=== PATIENT | male | born 1950 | race Caucasian/White ===

== ENCOUNTER 2016-10-18 07:43 | Inpatient (IN) | payer MEDICARE ==
[2016-10-18] VITALS (11 sets, daily range): BP systolic 98–123; BP diastolic 65–82
[~2016-10-18] VITALS: Ht 177.8 cm; Wt 69.0 kg
--- NOTE | ~2016-10-18 | WRIGHTHP ---
[place], [place] PATIENT HISTORY AND PHYSICAL EXAM NAME: LOLA VAZQUEZ [facility] #: [id number] UNIT #: [id number] ROOM: 506 DOCTOR: VINICIUS SIMENTAL MD BIRTHDATE: [birth year] DOS: 10/18/2016 HISTORY OF PRESENT ILLNESS: The patient is 66 years old. The patient states that he was in his usual state of health yesterday; he had few bottles of beer because it was Labor Day. He normally does not drink. He has history of peptic ulcer disease, but he does take 1 Naprosyn every day for his chronic back pain. He denies having any complaints of chest pains or palpitations, but during the night, he woke up and he had multiple emesis, abdominal pain and also had black-colored stools with some blood in his emesis. So, he decided to come into the emergency room where he was evaluated and was admitted. PAST MEDICAL HISTORY: Significant for: 1. History of peptic ulcer disease for which he is hospitalized in the past. 2. Hypertension. MEDICATIONS: Carvedilol 25 b.i.d., lisinopril 20 daily, hydrochlorothiazide 12.5 daily. SOCIAL HISTORY: Smoker of about half a pack. Denies using any alcohol on a regular basis. PHYSICAL EXAMINATION: GENERAL: He is awake and alert and oriented in no major distress. VITAL SIGNS: Graphic trend shows a pressure of 110/71, pulse of 57, respirations 16, temperature 97.8. LUNGS: Diminished breath sounds, clear. HEART: Regular. ABDOMEN: Soft, scaphoid, nontender. EXTREMITIES: Without any edema. LABORATORY DATA: The white cell count is 16.8, hemoglobin 13.1, hematocrit 37.3, platelets were 264. Comprehensive BUN is 62, creatinine 1.29. Chest x-ray was unremarkable. ASSESSMENT AND PLAN: 1. Elevated BUN, most likely from GI bleed. The patient is also on hydrochlorothiazide causing concern for kidney injury, so we discontinued hydrochlorothiazide and avoid naproxen and place him on IV fluids. 2. Most likely upper gastrointestinal bleed with coffee-ground emesis as well as black stools, endoscopy scheduled 3. Family history of colon cancer. Father at the age of 74. The patient should undergo a colonoscopy, but he is not being prepped for that. I encouraged the patient to have it done as an outpatient. 4. Bradycardia noted on exam. This could be from the high doses of carvedilol that he is on. I will hold off on the medicines and possibly cut back on the carvedilol dosage. [place], [place] PATIENT HISTORY AND PHYSICAL EXAM NAME: LOLA VAZQUEZ UNIT #: [id number] ROOM: 506 DOCTOR: VINICIUS SIMENTAL MD BIRTHDATE: [birth year] VINICIUS SIMENTAL MD CM:HISPHYS:PATIENT HISTORY AND PHYSICAL EXAMINATION 1428 [id number] VINICIUS SIMENTAL MD 10/18/16 1558 interface
--- NOTE | ~2016-10-18 | DS ---
[place], [place] DISCHARGE SUMMARY [id number] UN[facility] #: [id number] ROOM: 506 DOCTOR: VINICIUS SIMENTAL MD BIRTHDATE: [birth year] DOS: 10/20/2016 DIAGNOSES: 1. Upper gastrointestinal bleed. 2. Esophageal varices with acute gastritis alcoholic, status post epinephrine injection, Sandostatin infusion. 3. Benign hypertension. 4. Bradycardia. 5. Elevated BUN from GI bleed, avoid hydrochlorothiazide. HOSPITAL COURSE: This patient is not known to me, patient of Dr. Hilton, comes in with complaints of black colored stools following few bottles of beer the Day weekend. He also takes Naprosyn for his back pain. After admission, the patient was placed on IV fluids, serial H and H's did show slight drop, but did not require any transfusion. He did not have any active bleed. Dr. Almeida did see him, took him for endoscopy, showed the above-mentioned findings. After epinephrine injection, the patient has not had any complaints. The patient is stable and improved this morning. Hypokalemia supplementation is being ordered. The patient is otherwise stable. Avoid hydrochlorothiazide, nonsteroidals and alcohol in future, decrease dose of beta blockers since the patient has bradycardia. DISCHARGE MEDICATIONS: Protonix 40 daily and KCl 10 mEq daily for a week. VINICIUS SIMENTAL MD CM:DISCHARG 1012 VINICIUS SIMENTAL MD 10/20/16 1012 interface
--- NOTE | ~2016-10-18 | PR ---
[place], [place] PROGRESS NOTE [facility] [id number] UNIT #: [id number] ROOM: 506 DOCTOR: VINICIUS SIMENTAL MD BIRTHDATE: [birth year] DOS: SUBJECTIVE: The patient is not having any new complaint. OBJECTIVE: VITAL SIGNS: Graphic trend shows pressure 152/89, pulse of 72, respirations 18, temperature 97.6. LUNGS: Diminished breath sounds, clear. HEART: Regular. ABDOMEN: Soft. EXTREMITIES: Without any edema. ASSESSMENT AND PLAN: 1. Acute upper gastrointestinal bleed with endoscopy showing esophageal varices status post epinephrine injection and Sandostatin infusion. The patient is stable. We will discharge him to home today. Follow up with his PCP. 2. Benign hypertension, the patient's blood pressure has been controlled. He has been off his medications. He is advised to cut back on his dose of his Coreg and lisinopril because he is bradycardic he should not be taking this high amount of Coreg that he is on at home. Also, the hydrochlorothiazide has caused elevated BUN, so should avoid that too. Also, he is advised to avoid alcohol because of his high risk for esophageal bleed. VINICIUS SIMENTAL MD CM:PNTRANS 9 4 VINICIUS SIMENTAL MD 10/20/16924 interface
--- NOTE | ~2016-10-18 | O ---
[place], [place] OPERATIVE NOTE [facility]: [id number] UNIT #: [id number] ROOM: 506 DOCTOR: PRISCILLA BUNCH,CLARENCE BIRTHDATE: [birth year] DOS: GASTROENDOSCOPIC REPORT HISTORY OF PRESENT ILLNESS: This gentleman has presented to Emergency Room with hematemesis and black tarry stool. The patient with history of ETOH and history of take. PROCEDURE: Today's procedure part of investigation is panendoscopy, epinephrine injection and hemostasis therapy. PREMEDICATION: Versed and Diprivan. SCOPE: Olympus forward-viewing gastroscope Q10 video. REPORT: After putting the patient in the left lateral position and after application of lubricant to the scope, the scope was introduced. Thereafter, under direct visualization, I advanced through the length of the esophagus without difficulty. Trace esophageal varicosity was noticed. Hiatal hernia was noticed. At the level of the hiatal hernia, proximal gastric pouch, there is a bleeding visible vessel, which was photographed and injected with 2.5 mL of epinephrine 1:10,000 in both flanks. Gastric pouch was entered. Gastritis seen. Duodenal bulb, second and third part within normal limits. The patient extubated, tolerated procedure well. IMPRESSION: Esophageal varicosity, hiatal hernia, proximal bleeding visible vessel, status post epinephrine injection, hemostasis therapy. PLAN AND DISCUSSION: Sandostatin management with 50 mcg loading and 50 mcg per hour for next 12 hours and then 25 mcg per hour for 72 hours. Sucralfate slurry 2 grams q.6 hours, Protonix 40 mg IV b.i.d. ice chips today and from tomorrow, ice cream, milk shake and Ensure and follow up on H and H. CLARENCE WELLS MD CM:OPRECORD:OPERATIVE NOTE 1546 08 CLARENCE WELLS MD 10/18/161708 interface
--- NOTE | ~2016-10-18 | CON ---
[place], [place] REPORT OF CONSULTATION NAME[facility] [id number] UNIT #: [id number] ROOM: 506 DOCTOR: CLARENCE WELLS MD BIRTHDATE: [birth year] DOS: HISTORY OF PRESENT ILLNESS: This is a 66-year-old patient who presented with chief complaint of hematemesis and blood in stool. The patient's relevant history is that the patient has been on naproxen as well as old history of heavy alcohol consumption as well as recent alcohol consumption of 10 bottles of beer yesterday. At the time of admission, he had a panel of blood work done. Lactic acid was normal. CBC: White blood cell 16, H and H of 13 and 37, platelet count was 264. Comprehensive metabolic panel: BUN and creatinine of 62 and 1.29 was noticed. Electrolytes balanced, liver function tests surprisingly normal. Lipase 325, normal INR 1.1 and PT of 10.7 seconds and PTT of 23.6 seconds. Chest x-ray, no acute cardiopulmonary pathology. Drug screening was positive for THC. Urinalysis otherwise 1+ blood. PAST MEDICAL HISTORY: Associated with hypertension. PAST SURGICAL HISTORY: Right knee, right shoulder. ALLERGIES: PENICILLIN. SOCIAL HISTORY: Smoker and old history of alcohol and recent history of alcohol. MEDICATIONS: List reviewed. FAMILY HISTORY: Noncontributory. REVIEW OF SYSTEMS: HEENT: Denies double vision, blurred vision. RESPIRATORY: Admits some shortness of breath. CARDIOVASCULAR: Denies chest pain. DIGESTIVE SYSTEM: Hematemesis and blood in the stool as well. NEUROMUSCULOSKELETAL: Denies muscle wasting or tremens. PHYSICAL EXAMINATION: VITAL SIGNS: Stable. HEENT: Head normocephalic, nontraumatic. Mouth, buccal mucosa benign. NECK: Supple, no thyromegaly, no cervical lymphadenopathy. CHEST: Symmetric anatomy, decreased air entry in general. No wheeze, no rhonchi. HEART: Normal sinus rhythm, no gallop, no murmur. ABDOMEN: Soft. No hepato-organomegaly. Bowel sounds present. EXTREMITIES: Dry. No cyanosis, no pedal edema. NEUROLOGIC: Alert and oriented. IMPRESSION: Hematemesis with a history of ETOH heavily in past and likely presently, ruling out esophageal varicosities. His LFTs are normal. We will proceed with endoscopic assessment and based on the findings, further adjustment in the orders. [place], [place] REPORT OF CONSULTATION NAME: LOLA VAZQUEZ UNIT #: [id number] ROOM: 506 DOCTOR: CLARENCE WELLS MD BIRTHDATE: [birth year] ADJUNCTIVE DIAGNOSES: Systemic hypertension and chronic lower back pain, on naproxen. Thank you very much indeed. CLARENCE WELLS MD CM:CONSTR:REPORT OF CONSULTATION 1514 10/19/16 0606 interface
--- NOTE | ~2016-10-18 | PR ---
[place], [place] PROGRESS NOTE [facility]: [id number] UNIT #: [id number] ROOM: 506 DOCTOR: VINICIUS SIMENTAL MD BIRTHDATE: [birth year] DOS: SUBJECTIVE: The patient is about the same, does not have any new complaints. OBJECTIVE: VITAL SIGNS: Graphic trend shows a pressure 105/67, pulse is 71, respirations 20, temperature 98.2. LUNGS: Diminished breath sounds, clear. HEART: Regular. ABDOMEN: Soft. EXTREMITIES: Without any edema. ASSESSMENT AND PLAN: 1. Upper gastrointestinal bleed. Endoscopy was done yesterday, which showed esophageal varicosity, proximal bleeding blood vessel. This was injected with epinephrine and was started on Sandostatin. His blood count has gone down slightly to 10.0. We will continue to monitor that and start him on a diet as advised by Dr. Almeida to just ice cream and cold foods and if he does okay, he should be able to go home tomorrow. 2. Benign hypertension, pressure is normal, I am holding off on his antihypertensives. VINICIUS SIMENTAL MD CM:PNTRANS [id number] VINICIUS SIMENTAL MD 10/20/16 0336 interface
--- NOTE | ~2016-10-18 | WRIGHTHP ---
[place], [place] PATIENT HISTORY AND PHYSICAL EXAM [id number] #: [id number] ROOM: 506 DOCTOR: CLARENCE WELLS MD BIRTHDATE: [birth year] DOS: 10/18/2016 HISTORY OF PRESENT ILLNESS: The patient is 66-year-old who has presented with nausea, epigastric distress, dyspepsia, burning sensation in the epigastrium, history of peptic ulcer disease. The patient had presented to emergency room. PAST MEDICAL HISTORY: Duodenal ulcer, gastritis, history of neuropathy, diabetes mellitus and vertigo. PAST SURGICAL HISTORY: Nil. SOCIAL HISTORY: Nonsmoker, nonalcohol consumer. FAMILY HISTORY: Noncontributory except diabetes. ALLERGIES: VICODIN, ERYTHROMYCIN, HYDROCODONE. MEDICATIONS AT HOME: Insulin and amitriptyline. REVIEW OF SYSTEMS: In general, HEENT: Denies double vision, blurred vision. RESPIRATORY: Denies shortness of breath. CARDIOVASCULAR: Denies chest pain. DIGESTIVE SYSTEM: Epigastric distress, dyspepsia, nausea. NEUROMUSCULOSKELETAL: No muscle wasting, no tremens. Review of other systems normal. PHYSICAL EXAMINATION: VITAL SIGNS: Stable. HEENT: Head, normocephalic, nontraumatic. Mouth and buccal mucosa benign. NECK: Supple. No thyromegaly. No cervical lymphadenopathy. CHEST: Symmetric anatomy, equal expansion. No wheeze, no rhonchi. HEART: Normal sinus rhythm. No gallop, no murmur. ABDOMEN: Soft. No hepato-organomegaly. Bowel sounds present. No pulsatile mass. EXTREMITIES: No cyanosis, no pedal edema. NEUROLOGICAL: Alert, oriented to time, place and person. IMPRESSION: Epigastric distress, dyspepsia, ruling out peptic ulcer disease, history of duodenal ulcer, history of diabetes mellitus, history of gastritis and neuropathy. PLAN AND DISCUSSION: Endoscopic assessment of upper GI tract and clinical reevaluation. Thank you very much indeed. [place], [place] PATIENT HISTORY AND PHYSICAL EXAM NAME: LOLA VAZQUEZ UNIT #: [id number] ROOM: 506 DOCTOR: CLARENCE WELLS MD BIRTHDATE: [birth year] CLARENCE WELLS MD CM:HISPHYS:PATIENT HISTORY AND PHYSICAL EXAMINATION 1601 1727 CLARENCE WELLS MD 10/19/16 0647 interface
[2016-10-18 08:30] LABS: ALBUMIN 4.1 gm/dl (3.1-4.5); ALKALINE PHOSPHATASE 58 U/L (45-117); BUN 62 mg/dl (7-24); CHLORIDE 93 mmol/L (98-107); CREATININE 1.29 mg/dL (0.70-1.30); LIPASE 327 U/L (73-393); MAGNESIUM 2.6 mg/dL (1.5-2.1); POTASSIUM 3.5 mmol/L (3.5-5.1); SGOT/AST 15 IU/L (3-35); SGPT/ALT 19 U/L (12-78); SODIUM 132 mmol/L (136-145); TOTAL PROTEIN 7.8 gm/dL (6.4-8.2)
[2016-10-18 08:35] LABS: BASO % 0.2 % (0.0-1.0); EOS # 0.1 10*3/uL (0.0-0.4); EOS % 0.3 % (1.0-4.0); HEMATOCRIT 37.3 % (42.0-52.0); HEMOGLOBIN 13.1 g/dl (14.0-18.0); LYMPH # 2.3 10*3/uL (1.3-4.4); LYMPH % 13.5 % (27.0-41.0); MEAN CELL VOLUME 93.5 fl (80.0-94.0); MEAN CORPUSCULAR HGB 32.8 pg (27.0-31.0); MEAN CORPUSCULAR HGB CONC 35.1 g/dl (33.0-37.0); MEAN PLATELET VOLUME 9.7 fl (9.6-12.3); MONO # 1.1 10*3/uL (0.1-1.0); MONO % 6.8 % (3.0-9.0); NEUT # 13.2 10*3/uL (2.3-7.9); NEUT % 78.5 % (47.0-73.0); PLATELET COUNT AUTOMATED 264 10*3/uL (130-400); RED BLOOD COUNT 3.99 10*6/uL (4.50-5.90); WHITE BLOOD COUNT 16.8 10*3/uL (4.8-10.8)
[2016-10-18 08:38] LABS: ETHYL ALCOHOL < 3.0 mg/dl (<3)
[2016-10-18 08:47] LABS: ACT PARTIAL THROMBO TIME 23.6 SECONDS (20.8-31.5)
[2016-10-18] MEDS ORDERED: COREG25 MG PO (10:08)
[2016-10-18] MEDS ORDERED: ZESTORETIC 20-1 EACH PO (10:09)
[2016-10-18] MEDS ORDERED: VITAMIN D31000 UNIT PO (10:09)
[2016-10-18] MEDS ORDERED: ALEVE220 MG PO (10:10)
[2016-10-18] MEDS ORDERED: TYLENOL PM EX-1 EACH PO (10:10)
[2016-10-18 10:28] LABS: BILIRUBIN NEGATIVE (NEGATIVE); BLOOD 1+ (NEGATIVE); CLARITY CLEAR (CLEAR); COLOR YELLOW (YELLOW); GLUCOSE NEGATIVE (NEGATIVE); KETONE NEGATIVE (NEGATIVE); LEUKO ESTERASE NEGATIVE (NEGATIVE); NITRITE NEGATIVE (NEGATIVE); SPECIFIC GRAVITY <= 1.005 (1.005-1.030); UROBILINOGEN 0.2 E.U./dl (0.2-1.0)
[2016-10-18 10:36] LABS: URINE AMPHETAMINES < 1000 (1000ng/ml); URINE BARBITURATES < 200 (200ng/ml); URINE BENZODIAZEPINES < 200 (200ng/ml); URINE CANNABINOIDS (THC) > 50 (50ng/ml); URINE COCAINE < 300 (300ng/ml); URINE METHADONE < 300 (300ng/ml); URINE OPIATES < 300 (300ng/ml)
[2016-10-18 10:43] LABS: URINE PHENCYCLIDINE < 25 (25ng/ml)
[2016-10-19] VITALS: BP 105/67
[2016-10-19 07:33] LABS: BASO % 0.6 % (0.0-1.0); EOS # 0.2 10*3/uL (0.0-0.4); EOS % 2.5 % (1.0-4.0); LYMPH # 2.2 10*3/uL (1.3-4.4); LYMPH % 30.5 % (27.0-41.0); MEAN CORPUSCULAR HGB 33.7 pg (27.0-31.0); MEAN CORPUSCULAR HGB CONC 35.1 g/dl (33.0-37.0); MEAN PLATELET VOLUME 9.4 fl (9.6-12.3); MONO # 0.7 10*3/uL (0.1-1.0); MONO % 9.2 % (3.0-9.0); NEUT # 4.1 10*3/uL (2.3-7.9); NEUT % 56.9 % (47.0-73.0); RED BLOOD COUNT 2.97 10*6/uL (4.50-5.90); RED CELL DISTRI WIDTH 12.3 % (0-14.5); WHITE BLOOD COUNT 7.3 10*3/uL (4.8-10.8)
[2016-10-19 07:43] LABS: HEMATOCRIT 28.5 % (42.0-52.0); PLATELET COUNT AUTOMATED 167 10*3/uL (130-400)
[2016-10-19 08:00] VITALS: BP 126/80
[2016-10-19 08:06] LABS: CHLORIDE 106 mmol/L (98-107); CREATININE 0.98 mg/dL (0.70-1.30); POTASSIUM 3.4 mmol/L (3.5-5.1); SODIUM 137 mmol/L (136-145)
[2016-10-19 08:14] LABS: BUN 26 mg/dl (7-24)
[2016-10-19 12:01] VITALS: BP 112/63
[2016-10-19 16:00] VITALS: BP 149/85
[2016-10-19 20:00] VITALS: BP 130/86
[2016-10-20] VITALS: BP 152/89
[2016-10-20 08:00] VITALS: BP 159/89
[2016-10-20] MEDS ORDERED: PROTONIX40 MG PO (08:01)
[2016-10-20] MEDS ORDERED: K-TAB10 MEQ PO (08:03)
[2016-10-20 08:26] LABS: BASO # 0.1 10*3/uL (0.0-0.1); BASO % 0.4 % (0.0-1.0); EOS # 0.3 10*3/uL (0.0-0.4); EOS % 2.7 % (1.0-4.0); HEMATOCRIT 30.5 % (42.0-52.0); HEMOGLOBIN 10.6 g/dl (14.0-18.0); LYMPH # 1.9 10*3/uL (1.3-4.4); LYMPH % 15.9 % (27.0-41.0); MEAN CELL VOLUME 95.9 fl (80.0-94.0); MEAN CORPUSCULAR HGB 33.3 pg (27.0-31.0); MEAN CORPUSCULAR HGB CONC 34.8 g/dl (33.0-37.0); MEAN PLATELET VOLUME 9.1 fl (9.6-12.3); MONO % 8.2 % (3.0-9.0); NEUT # 8.6 10*3/uL (2.3-7.9); NEUT % 72.4 % (47.0-73.0); RED BLOOD COUNT 3.18 10*6/uL (4.50-5.90); RED CELL DISTRI WIDTH 12.2 % (0-14.5); WHITE BLOOD COUNT 11.9 10*3/uL (4.8-10.8)
[2016-10-20 08:27] LABS: PLATELET COUNT AUTOMATED 218 10*3/uL (130-400)
[2016-10-20 08:41] LABS: ALBUMIN 3.9 gm/dl (3.1-4.5); ALKALINE PHOSPHATASE 51 U/L (45-117); CHLORIDE 104 mmol/L (98-107); CREATININE 0.94 mg/dL (0.70-1.30); POTASSIUM 3.7 mmol/L (3.5-5.1); SGOT/AST 20 IU/L (3-35); SGPT/ALT 22 U/L (12-78); SODIUM 138 mmol/L (136-145); TOTAL PROTEIN 7.5 gm/dL (6.4-8.2)
[2016-10-20 08:47] LABS: BUN 10 mg/dl (7-24)
== END 2016-10-20 08:26 | disposition home or self-care (01) | DRG 377 ==
LOC: ED 07:43 → 5E 08:44
PROVIDERS: Emergency Medicine; Internal Medicine; ADMIT Internal Medicine
PROC: 3E0G8GC Introduction of Other Therapeutic Substance into Upper GI, Via Natural or Artificial Opening Endoscopic (ICD-10-PCS; principal; 2016-10-18)
DX: K92.2 Gastrointestinal hemorrhage, unspecified (principal); N17.0 Acute kidney failure with tubular necrosis; E87.1 Hypo-osmolality and hyponatremia; E11.40 Type 2 diabetes mellitus with diabetic neuropathy, unspecified; F17.210 Nicotine dependence, cigarettes, uncomplicated; G89.29 Other chronic pain; M54.5 Low back pain; I85.00 Esophageal varices without bleeding; E87.6 Hypokalemia; R00.1 Bradycardia, unspecified; K44.9 Diaphragmatic hernia without obstruction or gangrene; I10 Essential (primary) hypertension; Z79.899 Other long term (current) drug therapy; Z80.0 Family history of malignant neoplasm of digestive organs; Z79.4 Long term (current) use of insulin; Z88.1 Allergy status to other antibiotic agents; Z72.89 Other problems related to lifestyle; Z88.0 Allergy status to penicillin; Z87.11 Personal history of peptic ulcer disease; Z88.8 Allergy status to other drugs, medicaments and biological substances; Z71.41 Alcohol abuse counseling and surveillance of alcoholic; K29.20 Alcoholic gastritis without bleeding

== ENCOUNTER → 2017-01-24 | Outpatient (CLI) | payer MEDICARE ==
[~2017-01-24] MED LIST: ALEVE220 MG PO; COREG25 MG PO; K-TAB10 MEQ PO; PROTONIX40 MG PO; TYLENOL PM EX-1 EACH PO; VITAMIN D31000 UNIT PO; ZESTORETIC 20-1 EACH PO
== END | disposition home or self-care (01) ==
LOC: RAD 09:06
DX: M19.042 Primary osteoarthritis, left hand (principal); M65.4 Radial styloid tenosynovitis [de Quervain]

== ENCOUNTER → 2018-01-23 | Outpatient (CLI) | payer MEDICARE ==
[2018-01-23 13:09] LABS: BILIRUBIN NEGATIVE (NEGATIVE); BLOOD TRACE-LYSED (NEGATIVE); CLARITY SL CLOUDY (CLEAR); COLOR YELLOW (YELLOW); GLUCOSE NEGATIVE (NEGATIVE); KETONE NEGATIVE (NEGATIVE); LEUKO ESTERASE NEGATIVE (NEGATIVE); NITRITE NEGATIVE (NEGATIVE); PH 6.5 (5.0-9.0); UROBILINOGEN 0.2 E.U./dl (0.2-1.0)
[2018-01-23 13:31] LABS: BACTERIA 3+; EPITHELIAL CELLS 0-2
== END | disposition home or self-care (01) ==
LOC: LAB 12:40
PROVIDERS: Specialist
DX: R31.9 Hematuria, unspecified (principal)

== ENCOUNTER → 2018-04-26 | Outpatient (CLI) | payer MEDICARE ==
[2018-04-26 10:27] LABS: BUN 25 mg/dl (7-24); CHLORIDE 105 mmol/L (98-107); CREATININE 1.21 mg/dL (0.70-1.30); POTASSIUM 3.9 mmol/L (3.5-5.1); SODIUM 140 mmol/L (136-145)
== END | disposition home or self-care (01) ==
LOC: LAB 09:51 → CT 10:00
PROVIDERS: Family Medicine
DX: R59.0 Localized enlarged lymph nodes (principal); R51 Headache; R53.83 Other fatigue; R42 Dizziness and giddiness

== ENCOUNTER → 2018-05-22 | Outpatient (CLI) | payer MEDICARE | END | disposition home or self-care (01) | LOC: CT 08:54 | DX: C77.8 Secondary and unspecified malignant neoplasm of lymph nodes of multiple regions (principal); C79.51 Secondary malignant neoplasm of bone ==

== ENCOUNTER → 2018-09-26 | Outpatient (CLI) | payer MEDICARE, OTHER | END | disposition home or self-care (01) | LOC: CT 14:48 | DX: C34.90 Malignant neoplasm of unspecified part of unspecified bronchus or lung (principal); C77.8 Secondary and unspecified malignant neoplasm of lymph nodes of multiple regions; C79.51 Secondary malignant neoplasm of bone; N28.1 Cyst of kidney, acquired; J43.9 Emphysema, unspecified ==

== ENCOUNTER → 2019-01-30 | Outpatient (CLI) | payer MEDICARE, OTHER | END | disposition home or self-care (01) | LOC: CT 09:40 | DX: C79.51 Secondary malignant neoplasm of bone (principal); C77.8 Secondary and unspecified malignant neoplasm of lymph nodes of multiple regions; C34.11 Malignant neoplasm of upper lobe, right bronchus or lung; N28.1 Cyst of kidney, acquired ==

== ENCOUNTER → 2019-03-24 | Outpatient (CLI) | payer MEDICARE, OTHER | END | disposition home or self-care (01) | LOC: RAD 16:18 | DX: R68.84 Jaw pain (principal) ==

== ENCOUNTER 2019-05-22 11:08 | Emergency (ER) | payer MEDICARE, OTHER ==
[~2019-05-22] VITALS: Ht 177.8 cm; Wt 90.7 kg
[2019-05-22 11:57] LABS: HEMATOCRIT 37.6 % (42.0-52.0); HEMOGLOBIN 11.7 g/dl (14.0-18.0); MEAN CELL VOLUME 104.7 fl (80.0-94.0); MEAN CORPUSCULAR HGB 32.6 pg (27.0-31.0); MEAN CORPUSCULAR HGB CONC 31.1 g/dl (33.0-37.0); MEAN PLATELET VOLUME 9.3 fl (9.6-12.3); NUCLEATED RED BLOOD CELL 0.1 % (0.0-0.0); PLATELET COUNT AUTOMATED 158 10*3/uL (130-400); RED BLOOD COUNT 3.59 10*6/uL (4.50-5.90); RED CELL DISTRI WIDTH 15.4 % (0-14.5)
[2019-05-22 12:07] LABS: ACT PARTIAL THROMBO TIME 24.8 SECONDS (20.0-32.1)
[2019-05-22 12:12] LABS: ALBUMIN 3.4 gm/dl (3.1-4.5); ALKALINE PHOSPHATASE 57 U/L (45-117); BUN 23 mg/dl (7-24); CHLORIDE 108 mmol/L (98-107); CREATININE 1.11 mg/dL (0.70-1.30); SGOT/AST 33 IU/L (3-35); SGPT/ALT 49 U/L (12-78); SODIUM 138 mmol/L (136-145); TOTAL PROTEIN 7.3 gm/dL (6.4-8.2)
[2019-05-22 12:17] LABS: TOTAL CELLS COUNTED 100 #CELLS
[2019-05-22 12:18] LABS: PLATELET SUFFICIENCY NORMAL (NORMAL)
== END 2019-05-22 14:12 | disposition home or self-care (01) ==
LOC: ED 11:08
PROVIDERS: Nurse Practitioner Family
DX: S02.2XXA Fracture of nasal bones, initial encounter for closed fracture (principal); S42.392A Other fracture of shaft of left humerus, initial encounter for closed fracture; S09.90XA Unspecified injury of head, initial encounter; Z88.0 Allergy status to penicillin; Z88.8 Allergy status to other drugs, medicaments and biological substances; Z79.899 Other long term (current) drug therapy; W10.9XXA Fall (on) (from) unspecified stairs and steps, initial encounter; W22.01XA Walked into wall, initial encounter; Y93.89 Activity, other specified; Y92.89 Other specified places as the place of occurrence of the external cause; Y99.8 Other external cause status